=== PATIENT | male | born 1990 | race African-American/Black ===

== ENCOUNTER 2018-10-31 10:35 | Emergency (ER) | payer MEDICAID ==
[~2018-10-31] VITALS: Ht 177.8 cm; Wt 77.1 kg
--- NOTE | 2018-10-31 10:46 | NUR ---
ED Nurse Note: Pt states that he's taking antibiotic x1 day but does not remember the name and dose.
[2018-10-31] MEDS ORDERED: Bactrim-DS 1 tab ORAL ONE (11:15)
[2018-10-31] MEDS ORDERED: Cephalexin 500mg cap ORAL ONE (11:15)
--- NOTE | 2018-10-31 11:16 | NUR ---
ED Nurse Note: pt with bilat sores to buttocks that pt states have blood drainage only, areas scabbed over at this time no drainage.
--- NOTE | 2018-10-31 11:26 | NUR ---
ED Nurse Note: pt medicated
[2018-10-31] MEDS ORDERED: IBUPROFEN600 MG ORAL (11:35)
[2018-10-31] MEDS ORDERED: BACTRIM DS TAB1 EAC1 ORAL (11:35)
[2018-10-31] MEDS ORDERED: CEPHALEXIN500 MG ORAL (11:35)
[2018-10-31 11:54] VITALS: BP 138/86
--- NOTE | 2018-10-31 11:54 | NUR ---
ED Nurse Note: Pt cleared by health care Provider for discharge. DC instructions/prescription was given and explained to pt and verbalized understanding of teachings. All medical devices such as ID band removed. Pt is AAO x4, ambulatory and left with all personal belongings.
[2018-10-31] MEDS ORDERED: CEPHALEXIN250 MG/5 M ORAL (12:13)
--- NOTE | 2018-10-31 13:33 | Emergency Room Report ---
History of Present Illness General Chief Complaint: Skin Rash/Abscess Source: Patient Present Illness HPI Patient presents with complaints of lesion to bilateral buttock area Patient's tax compliance agent is here as well as the patient has some develop mental delay Patient was seen by primary physician yesterday Has not been able to take his antibiotics as the tax compliance agent reports that he has difficulty taking tablets Denies any fevers denies any abdominal pain denies any rash the Lesions in question are located to bilateral buttock area Denies any difficulty with bowel movement Allergies: Coded Allergies: No Known Allergies (Unverified , 10/31/18) Patient History Past Medical History: see triage record Pertinent Family History: none Reviewed Nursing Documentation: PMH: Agreed; PSxH: Agreed Nursing Documentation-PMH Past Medical History: No Stated History Review of Systems All Other Systems: negative except mentioned in HPI Physical Exam Vital Signs Date Time Temp Pulse Resp B/P (MAP) Pulse Ox O2 Delivery O2 Flow Rate FiO2 10/31/18 10:42 98.8 77 16 138/86 (103) 96 Room Air Sp02 EP Interpretation: reviewed, normal General Appearance: well appearing, no apparent distress Head: normocephalic, atraumatic Eyes: bilateral eye PERRL, bilateral eye EOMI ENT: hearing grossly normal, normal pharynx, TMs + canals normal, uvula midline Neck: full range of motion, supple, no meningismus, no bony tend Respiratory: lungs clear, normal breath sounds, no rhonchi, no respiratory distress, no retraction, no accessory muscle use Cardiovascular #1: normal peripheral pulses, regular rate, rhythm, no edema, no gallop, no JVD, no murmur Gastrointestinal: normal bowel sounds, non tender, soft, no mass, no organomegaly, non-distended, no guarding, no hernia, no pulsatile mass, no rebound Genitourinary: no CVA tenderness Musculoskeletal: normal inspection Neurologic: oriented x3, responsive, polysomnography technician III-XII nml as tested, motor strength/ tone normal, sensory intact Psychiatric: mood/affect normal Skin: other - Patient has 2 areas in question the area on the left lateral buttock area, shows an area of approximately 1 x 1 cm with mild erythema central area of scab formation,, another area on the right lower buttock area shows a lesion with approximately half by half centimeter erythema and central scabbing, no obvious fluctuance no obvious discharge Lymphatic: normal inspection, no adenopathy Medical Decision Making Diagnostic Impression: Primary Impression: Rash and other nonspecific skin eruption Additional Impression: cellulitis ER Course Given the exam and findings consistent with early cellulitis small area of early abscess cannot be ruled out The areas appeared to be fairly well localized patient will have trial on oral antibiotics And follow closely with primary physician any worsening of the symptoms patient will return to the ER Last Vital Signs Date Time Temp Pulse Resp B/P (MAP) Pulse Ox O2 Delivery O2 Flow Rate FiO2 10/31/18 11:54 72 16 138/86 96 Room Air 10/31/18 10:42 98.8 Status: improved Disposition: HOME, SELF-CARE Condition: Improved Scripts Cephalexin* (CEPHALEXIN*) 250 Mg/5 Ml Susp.recon 10 ML ORAL FOUR TIMES A DAY for 7 Days, #100 ML 0 Refills Prov: Alisha Kevin DO 10/31/18 Ibuprofen* (MOTRIN*) 600 Mg Tablet 600 MG ORAL Q8H PRN for For Pain, #20 TAB 0 Refills Prov: Alisha Kevin DO 10/31/18 Trimethoprim/Sulfamethoxazole 160/800* (BACTRIM DS TABLET*) 1 Each Tablet 1 TAB ORAL Q12H, #14 TAB 0 Refills Prov: Alisha Kevin DO 10/31/18 Cephalexin* (KEFLEX*) 500 Mg Capsule 500 MG ORAL EVERY 6 HOURS for 7 Days, CAP Prov: Alisha Kevin DO 10/31/18 [facility] Patient Instructions: Cellulitis, [id number] Additional Instructions: Patient is provided with the discharge instructions notified to follow up with primary doctor in the next 2-3 days otherwise return to the er with any worsening symptoms. Please note that this report is being documented using [employer] technology. This can lead to erroneous entry secondary to incorrect interpretation by the dictating instrument. Alisha Kevin DO Oct 31, 2018 13:33
== END 2018-10-31 11:58 | disposition home or self-care (01) ==
LOC: EMR 11:50
DX: R21 Rash and other nonspecific skin eruption (principal); L03.317 Cellulitis of buttock; R62.50 Unspecified lack of expected normal physiological development in childhood
CPT/HCPCS: 99282